=== PATIENT | male | born 1995 | race Caucasian/White ===

== ENCOUNTER 2022-01-02 12:04 | Emergency (ER) | payer MEDICAID ==
[2022-01-02 12:21] VITALS: TEMP 98.4
[2022-01-02] MEDS ORDERED: HYDROmorphone 0.5 MG/0.5 ML SYRINGE IVP STA ×2 (12:38→14:22)
[2022-01-02] MEDS ORDERED: KETOROLAC 15 MG/ML 1 ML VIAL IVP STA (12:38)
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
[2022-01-02 13:05] LABS: Appearance,Urine Clear (Clear); Bilirubin,Urine Negative (Negative); Blood,Urine Negative (Negative); Color,Urine Yellow; Glucose,Urine (UA) Negative (Negative); Ketones,Urine 1+ (Negative); Leukocyte Esterase,Urine Negative (Negative); Nitrite,Urine Negative (Negative); PH, Urine 5.5 (5.0-8.0); Protein,Urine Negative (Negative); Specific Gravity,Urine 1.013 (1.001-1.035); Urobilinogen,Urine <2.0 mg/dL (<2.0)
--- NOTE | 2022-01-02 14:02 | US ---
EXAMINATION TYPE: US scrotum with doppler. Grayscale and color Doppler Duplex imaging performed of deneen singh scrotum. DATE OF EXAM: 01/02/2022 COMPARISON: NONE CLINICAL HISTORY: Left testicular pain. left testicle pain for 1 day, getting worse EXAM MEASUREMENTS: TESTICLES: Right Testicle: 4.9 x 2.3 x 3.7 cm Left Testicle: 4.6 x 2.4 x 3.0 cm EPIDIDYMIS HEAD: Right Epididymis: 1.0 cm Left Epididymis: 1.5 cm Doppler performed to assess for testicular vascularity; good bilateral color flow and waveforms are s een. There is no evidence of testicular torsion. Presence of hydroceles: small fluid collection lateral to right testicle = 3.4cm Presence of varicoceles: increased vascularity medial to left testicle with vessels measuring up to 3 mm. IMPRESSION: 1. Left varicocele 2. Color Doppler flow to the testes. 3. Small right hydrocele.
[2022-01-02] MEDS ORDERED: ACET/COD 300 MG/30 MG STARTER PACK 6 TAB BTL PO STA (14:25)
[2022-01-02 14:49] VITALS: BP 123/72; PULSE 69; RESP 18
== END 2022-01-02 14:51 | disposition home or self-care (01) ==
LOC: EC 12:04
DX: I86.1 Scrotal varices (principal); F17.209 Nicotine dependence, unspecified, with unspecified nicotine-induced disorders
CPT/HCPCS: 99284; 96374; 96376; 96375; 81003; 93975; 76870; J1885; J1170; 87491; 87591

== ENCOUNTER → 2022-10-08 | Day surgery (SDC) | payer MEDICAID ==
[2022-10-06 12:00] VITALS: BMI 32.5
[~2022-10-08] MED LIST: ACETAMINOPHEN TAB 500 MG TAB PO PRN; BUPIVACAINE (PF) 0.25% 30 ML VIAL SQ ONE; DEXAMETHASONE SOD PHOSPHATE 4 MG/ML 1 ML VIAL IV ONE; HEPARIN SODIUM,PORCINE/PF 5,000 UNIT/0.5 ML SYRINGE SQ PRN; HYDROcodone/APAP 5-325MG 1 EACH TAB PO PRN; HYDROmorphone 0.5 MG/0.5 ML SYRINGE IVP PRN; KETOROLAC 15 MG/ML 1 ML VIAL ONE; LACTATED RINGERS 1,000 ML IV SCH; LIDOCAINE 1% (10MG/ML) FOR IV START INTRADERMA PRN; LIDOCAINE 2% INJ 20 MG/ML (2 ML VIAL) ONE; MIDAZOLAM 2 MG/2 ML VIAL IV PRN; MIDAZOLAM 2 MG/2 ML VIAL ONE; NALOXONE 0.4 MG/ML 1 ML VIAL IV PRN; ONDANSETRON 4 MG/2 ML VIAL IVP ONE; ONDANSETRON 4 MG/2 ML VIAL ONE; PROPOFOL 10 MG/ML 20 ML VIAL IV ONE; SUCCINYLCHOLINE CHLORIDE 200 MG/10 ML VIAL IV ONE; fentaNYL (PF) 50 MCG/ML 2 ML AMP ONE; metroNIDAZOLE-NS PMX 500 MG in SALINE 1 100ML.BAG IVPB PRN
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
--- NOTE | 2022-10-08 09:31 | P.OP ---
Date of Procedure: 10/08/22 Procedure(s) Performed: PREOPERATIVE DIAGNOSIS: Pilonidal cyst POSTOPERATIVE DIAGNOSIS: Same PROCEDURE: Pilonidal cystectomy SURGEON: Dylan MARIEL: Minimal ANESTHESIA: General COMPLICATIONS: None OPERATIVE PROCEDURE: Patient was placed prone on the operating table after general anesthesia was achieved. The gluteal crease was prepped and draped in usual sterile fashion after the patient was placed in the prone jackknife position. The patient had 2 separate skin openings in the upper gluteal crease and a palpable cyst just to the right of midline measuring 1.5 cm superiorly. An elliptical incision was made to the right side of the buttock encompassing the medial aspect of the right buttock skin coming around just on the left side of the skin openings. Dissection through the subcutaneous tissues took place using electrocautery. The least amount of dissection took place that was required. No tunneling was seen in the periphery. Skin flap was raised to the left approximately 3-4 cm. The wound was then irrigated fully with saline. No bleeding was seen. The subcutaneous tissues were reapproximated using interrupted 2-0 Vicryl sutures. The dermal layer was then reapproximated using interrupted 3-0 Vicryl sutures. The skin was then closed using a running 3-0 Monocryl suture. The incision was off the midline to the left by a distance of approximately 1cm. Marcaine solution plain was utilized as local anesthesia. Skin glue was used along the length of the skin closure. A sterile dressing was applied at that time. DISPOSITION: Stable to recovery room
[2022-10-08 09:42] VITALS: TEMP 97.1
[2022-10-08 11:14] VITALS: RESP 16
[2022-10-08 11:15] VITALS: BP 133/80; PULSE 73
== END ==
LOC: OR 07:27
PROVIDERS: ATTEND Surgery
DX: L05.91 Pilonidal cyst without abscess (principal); F12.90 Cannabis use, unspecified, uncomplicated; F17.290 Nicotine dependence, other tobacco product, uncomplicated; Z98.890 Other specified postprocedural states; Z90.49 Acquired absence of other specified parts of digestive tract
CPT/HCPCS: 11770; J2250; J0330; J1100; J0690; J2405; J3010; J1885; J2704; J1644; J2001; 88304